=== PATIENT | female | born 1980 | race Two or more races ===

== ENCOUNTER 2018-07-07 05:49 | Day surgery (SDC) | payer OTHER ==
[~2018-07-07 05:49] MED LIST: CLONAZEPAM0.5 MG PO
[2018-07-07] MEDS ORDERED: ULTRAM50 MG PO (08:45)
[2018-07-07] MEDS ORDERED: SURFAK240 M1 PO (08:46)
[2018-07-07] MEDS ORDERED: POLY119PG PO (08:46)
== END 2018-07-07 12:06 | disposition home or self-care (01) ==
LOC: CIR.AMB 05:49
DX: K80.10 Calculus of gallbladder with chronic cholecystitis without obstruction (principal)